=== PATIENT | female | born 1965 | race Two or more races ===

== ENCOUNTER 2017-01-16 09:33 | Emergency (ER) | payer MEDICAID, OTHER ==
[~2017-01-16] VITALS: Ht 160 cm; Wt 79.0 kg
[2017-01-16 09:37] VITALS: Ht 160 cm; Wt 79.0 kg
[2017-01-16] MEDS ORDERED: ONDANSETRON 4 MG INJ IV STA (10:27)
[2017-01-16] MEDS ORDERED: MECLIZINE 12.5 MG TAB PO ONE (10:30)
[2017-01-16] MEDS ORDERED: SOD CHLORIDE 0.9% 1,000 ML IV ONE (10:30)
[2017-01-16 11:16] LABS: ADD SCAN DIFF NO
[2017-01-16 11:19] LABS: BASOPHILS % 0.4 % (0.0-2.0); EOSINOPHILS % 0.6 % (0.0-7.0); HEMATOCRIT 41.8 % (37.0-47.0); HEMOGLOBIN 13.6 g/dl (12.0-16.0); LYMPHOCYTES # 0.8 10^3/ul (0.8-2.9); LYMPHOCYTES % 15.7 % (15.0-51.0); MEAN CORPUSCULAR HEMOGLOBIN 30.8 pg (29.0-33.0); MEAN CORPUSCULAR HGB CONC 32.5 g/dl (32.0-37.0); MEAN CORPUSCULAR VOLUME 94.6 fl (82.0-101.0); MEAN PLATELET VOLUME 9.5 fl (7.4-10.4); MONOCYTE # 0.3 10^3/ul (0.3-0.9); NEUTROPHIL # 4.1 10^3/ul (1.6-7.5); NEUTROPHILS % 78.1 % (39.0-77.0); PLATELET COUNT 206 10^3/UL (140-415); RED BLOOD COUNT 4.42 10^6/ul (4.20-5.40); RED CELL DISTRIBUTION WIDTH 12.3 % (11.5-14.5); WHITE BLOOD COUNT 5.2 10^3/ul (4.8-10.8)
[2017-01-16 11:25] LABS: ADD UMIC YES; URINE BILIRUBIN (Dip) NEGATIVE (NEGATIVE); URINE BLOOD (Dip) TRACE (NEGATIVE); URINE COLOR LT. YELLOW (YELLOW); URINE GLUCOSE (Dip) NEGATIVE (NEGATIVE); URINE KETONES (Dip) NEGATIVE (NEGATIVE); URINE LEUKOCYTE ESTERASE (Dip) 1+ (NEGATIVE); URINE NITRITE (Dip) NEGATIVE (NEGATIVE); URINE TOTAL PROTEIN (Dip) NEGATIVE (NEGATIVE); URINE UROBILINOGEN (Dip) 0.2 E.U./dL (0.1-1.0)
[2017-01-16 11:36] LABS: ALBUMIN 4.8 g/dl (3.3-4.9)
[2017-01-16 11:37] LABS: POTASSIUM 4.3 mmol/L (3.5-5.1)
[2017-01-16 11:39] LABS: ALBUMIN/GLOBULIN RATIO 1.37; BILIRUBIN,INDIRECT 0.2 mg/dl (0-1.1); BILIRUBIN,TOTAL 0.2 mg/dl (0.2-1.3); CALCIUM 9.8 mg/dl (8.4-10.2); CREATININE 0.58 mg/dl (0.44-1.00); TOTAL PROTEIN 8.3 g/dl (6.1-8.1)
[2017-01-16 11:43] LABS: BACTERIA,URINE FEW; SQUAMOUS EPITHELIAL CELL,UR FEW; URINE RBCS NONE SEEN /HPF (0)
[2017-01-16] MEDS ORDERED: ONDA4TAB8 PO (11:48)
[2017-01-16] MEDS ORDERED: NITR-58 PO (11:48)
--- NOTE | 2017-01-16 11:56 | ERD ---
ER Documentation Chief Complaint Date/Time DATE: 01/16/17 TIME: 11:52 Chief Complaint dizziness with nausea today HPI This is a 51-year-old female that presents to the ER with multiple complaints. Patient states that yesterday she began to feel a headache with a cough. This morning patient woke up with nausea vomiting and diarrhea. Vomiting is nonbilious nonbloody, diarrhea is watery and nonbloody. Patient is also complaining of feeling dizzy, she describes dizziness as a spinning sensation worse whenever she stands up. Patient headache has resolved, she did not have any trauma. She denies any loss of consciousness. Patient denies any vision loss or vision changes. She denies any fevers or chills. Patient denies any urinary frequency or dysuria. ROS 12 point review of systems was done, all negative except per HPI. Medications Home Meds Active Scripts Nitrofurantoin Monohyd Macrocr* (Macrobid*) 100 Mg Capsr, 100 MG PO BID for 7 Days, CAP Prov:WILFREDO HILL C 01/16/17 Ondansetron Hcl* (Zofran*) 4 Mg Tablet, 4 MG PO Q6H for NAUSEA AND/OR VOMITING, #30 TAB Prov:LIZ,WILFREDO C 01/16/17 Allergies Allergies: Coded Allergies: No Known Allergy (Unverified , 06/05/14) PMhx/Soc Medical and Surgical Hx: pt denies Medical Hx History of Surgery: Yes (gallbladder removal) Anesthesia Reaction: No Hx Neurological Disorder: No Hx Respiratory Disorders: No Hx Cardiac Disorders: No Hx Psychiatric Problems: No Hx Miscellaneous Medical Probl: No Hx Alcohol Use: No Hx Substance Use: No Hx Tobacco Use: No Smoking Status: Never smoker Physical Exam Vitals Vital Signs Date Time Temp Pulse Resp B/P Pulse Ox O2 Delivery O2 Flow Rate FiO2 01/16/17 09:37 98.1 79 18 129/62 99 Physical Exam GENERAL: The patient is well-developed, well-nourished, in no acute distress. NECK: Cervical spine is non tender with no step off. Supple, no nuchal rigidity HEENT: Atraumatic. Pupils equal, round and reactive to light. Extraocular muscles are grossly intact. Conjunctivae pink, no discharge. The oropharynx is clear with no erythema or exudates and the mucosa is moist. No signs of dehydration. RESPIRATORY: Clear to auscultation bilaterally. There are no rales, wheezes or rhonchi. There is no inspiratory stridor or retractions. No flaring/retractions. HEART: Regular rate and rhythm. No murmurs, clicks, rubs or gallops. ABDOMEN: Soft, nontender, nondistended. Active bowel sounds in all 4 quadrants. No rebounding or guarding. Negative McBurney point tenderness. NEUROLOGIC: Alert and oriented. Cranial nerves II through XII are intact. Strength 5/5 and symmetric upper and lower extremities, sensory exam grossly intact, reflexes 2+ and symmetric Result Diagram: 01/16/17 1050 01/16/17 1050 Results 24 hrs Laboratory Tests Test 01/16/17 10:50 White Blood Count 5.210^3/ul Red Blood Count 4.4210^6/ul Hemoglobin 13.6g/dl Hematocrit 41.8% Mean Corpuscular Volume 94.6fl Mean Corpuscular Hemoglobin 30.8pg Mean Corpuscular Hemoglobin Concent 32.5g/dl Red Cell Distribution Width 12.3% Platelet Count 04727^3/UL Mean Platelet Volume 9.5fl Neutrophils % 78.1% Lymphocytes % 15.7% Monocytes % 5.0% Eosinophils % 0.6% Basophils % 0.4% Nucleated Red Blood Cells % 0.0/100WBC Neutrophils # 4.110^3/ul Lymphocytes # 0.810^3/ul Monocytes # 0.310^3/ul Eosinophils # 0.010^3/ul Basophils # 0.010^3/ul Nucleated Red Blood Cells # 0.010^3/ul Urine Color LT. YELLOW Urine Clarity CLEAR Urine pH 5.5 Urine Specific [place] 1.010 Urine Ketones NEGATIVE Urine Nitrite NEGATIVE Urine Bilirubin NEGATIVE Urine Urobilinogen 0.2 E.U./dL Urine Leukocyte Esterase 1+ Urine Microscopic RBC NONE SEEN/HPF Urine Microscopic WBC 0-2/HPF Urine Squamous Epithelial Cells FEW Urine Bacteria FEW Urine Hemoglobin TRACE Urine Glucose NEGATIVE% Urine Total Protein NEGATIVE Sodium Level 144mmol/L Potassium Level 4.3mmol/L Chloride Level 104mmol/L Carbon Dioxide Level 28mmol/L Anion Gap 16 Blood Urea Nitrogen 6mg/dl Creatinine 0.58mg/dl Glucose Level 106mg/dl Calcium Level 9.8mg/dl Total Bilirubin 0.2mg/dl Direct Bilirubin 0.00mg/dl Indirect Bilirubin 0.2mg/dl Aspartate Amino Transf (AST/SGOT) 22IU/L Alanine Aminotransferase (ALT/SGPT) 22IU/L Alkaline Phosphatase 71IU/L Total Protein 8.3g/dl Albumin 4.8g/dl Globulin 3.50g/dl Albumin/Globulin Ratio 1.37 Current Medications Medications (Trade) Dose Ordered Sig/Janet Route PRN Reason Start Time Stop Time Status Last Admin Dose Admin Meclizine HCl (Antivert) 25 mg ONCE ONCE PO 01/16/17 10:30 01/16/17 10:31 DC 01/16/17 10:57 Ondansetron HCl 4 mg 4 mg ONCE STAT IV 01/16/17 10:27 01/16/17 10:30 DC 01/16/17 10:56 Sodium Chloride (NS) 1,000 ml @ 1,000 mls/hr Q1H ONCE IV 01/16/17 10:30 01/16/17 11:29 DC 01/16/17 10:56 Procedures/MDM Differential Diagnosis includes but is not limited to; Benign positional vertigo , labyrinthitis, vertigo, MS, acoustic neuroma, arrhythmia, anemia, hypoglycemia , infection, dehydration. Patient is neurologically intact with no focal neurological deficits and she does not have any history of trauma I do not believe that CT scan is necessary at this time. An EKG was checked and read by [address] elevation no T-wave inversion. Blood work was drawn there is no evidence of anemia, hypoglycemia infection or dehydration. Patient was found to have a urinary tract infection, she will be sent home with Macrobid. Patient was given fluids in the ER, she will be sent home with Zofran for nausea. Patient has multiple complaints likely related to a viral process. Patient is to follow-up with her primary care doctor within 1-2 days or return to ER sooner if symptoms worsen. My medical decision making was shared with the patient and her family they understand and agree with plan. Disposition is home in stable Departure Diagnosis: Primary Impression: UTI (urinary tract infection) Additional Impression: Nausea vomiting and diarrhea Condition: Stable Patient Instructions: Understanding Urinary Tract Infections (UTIs) Additional Instructions: Call your primary care doctor TOMORROW for an appointment during the next 1-2 days.See the doctor sooner or return here if your condition worsens before your appointment time. WILFREDO HILL January 16, 2017 11:56
[2017-01-16 11:58] VITALS: BP 126/67; PULSE 80; RESP 18; TEMP 98.2
== END 2017-01-16 11:59 | disposition home or self-care (01) ==
LOC: FTE 09:33
DX: N39.0 Urinary tract infection, site not specified (principal); R11.2 Nausea with vomiting, unspecified; R19.7 Diarrhea, unspecified
CPT/HCPCS: 80053; 81001; 85025; 93005; 96361; 96374; J2405; J7030; Z7502; Z7610; 81003

== ENCOUNTER 2017-12-27 01:56 | Emergency (ER) | END 2017-12-27 05:48 | disposition home or self-care (01) ==